=== PATIENT | male | born 1970 | race Caucasian/White ===

== ENCOUNTER 2022-12-18 02:54 | Outpatient (CLI) | payer OTHER, SELFPAY ==
[2022-12-18 09:53] LABS: ALT 24 U/L (16-63); AST 24 U/L (15-37); Albumin 3.8 g/dL (3.4-5.0); Alkaline Phosphatase 113 U/L (46-116); Anion Gap 8.3 mmol/L (3-11); BUN 13 mg/dL (7-18); Bilirubin, Total 0.3 mg/dL (0.2-1.0); CO2 28.7 mmol/L (21.0-32.0); Calcium 9.3 mg/dL (8.5-10.1); Calculated LDL 118 mg/dL (<100); Chloride 104 mmol/L (98-107); Cholesterol 176 mg/dL (<200); Estimated GFR 90.56 (mL/min/1.73m2); Glucose 99 mg/dL (74-106); HDL Cholesterol 46 mg/dL (40-60); Potassium 4.2 mmol/L (3.5-5.1); Sodium 141 mmol/L (136-145); Total Protein 7.5 g/dL (6.4-8.2); Triglyceride 62 mg/dL (<150)
== END 2022-12-18 02:55 | disposition home or self-care (01) ==
PROVIDERS: PCP Nurse Practitioner Family; Visit Provider Nurse Practitioner Family
DX: E78.5 Hyperlipidemia, unspecified (principal)
CPT/HCPCS: 36415; 80053; 80061

== ENCOUNTER 2023-05-07 08:03 | Day surgery (SDC) | payer OTHER, SELFPAY ==
--- NOTE | 2023-05-06 14:54 | W.PM.DSUDISC ---
Date of service: 05/07/23 Time of Service: 10:31 Discharge Plan Disposition Patient Disposition: Home Condition: Good Discharge Details Reason For Visit: screening colonoscopy Attending Provider: Amandeep Reardon Primary Care Provider: Javad Page Home Meds and New Rx's Prescriptions: Continued atorvastatin [Lipitor] 20 mg tablet 20 mg PO DAILY Qty: 90 4RF multivitamin Tablet 1 tab PO DAILY Discontinued bisacodyl [Dulcolax (bisacodyl)] 5 mg tablet,delayed release (DR/EC) 5 mg PO ONCE Qty: 4 0RF Rx Instructions: Colonoscopy Bowel Prep- Per Instructions polyethylene glycol 3350 17 gram/dose powder 238 g PO ONCE Qty: 238 0RF Rx Instructions: Colonoscopy Bowel Prep- Per Instructions Discharge Instructions Instructions: Colorectal Polyps (GEN) Additional Instructions: Joel, we were able to complete your colonoscopy today without any difficulty. In total I found 5 polyps, all were quite small. I removed these all completely. They will be sent off to be tested for pathology. Once I have those results, I will be in touch with my recommendations for your next colonoscopy. Like we talked about beforehand, at the longest, I would recommend 5 years based on your family history. If any of these polyps turned out to be more aggressive, then I would shorten that 3 years. If you have any questions in the meantime, please do not hesitate to call. Otherwise we will let you know once the pathology is available. 1. If tolerated, consume a soft, low fiber diet for 1-2 days. 2. Do not drive, drink alcohol, operate machinery, make critical decisions, or do activities that require coordination or balance for 24 hours. 3. Because air was put into your colon during the procedure, expelling air from your rectum (passing gas or farting) is normal. 4. You may not have a bowel movement for 1-3 days because of the colonoscopy prep. This is normal. 5. Go directly to the emergency room if you notice any of the following: Develop chills (warm to touch), or if you have a thermometer and your temperature is above 101 Difficulty breathing or difficultly swallowing Persistent vomiting Severe abdominal pain, other than gas cramps Severe chest pain Black, tarry stools Any bleeding ? exceeding one tablespoon 6. Call your physician if the site where your intravenous was started becomes red, swollen, painful, and warm to touch. 7. Your physician has reviewed your pre-procedure medications. Please continue to take those medications as previously ordered. You will be given specific information/education regarding any changes to your medications before leaving. Activity:: Activity as Tolerated Diet:: As Tolerated Discharge Orders Discharge Orders: Discharge Order (Routine); Ordered 05/06/23 Ordered By: Amandeep Reardon DS: Diagnosis Discharge Diagnosis (1) Screen for colon cancer: Status: Acute Asessment and Plan: Follow-up on polypectomy results
--- NOTE | 2023-05-06 14:55 | COLE_ITS ---
Date of service: 05/07/23 Time of Service: 10:33 Colonoscopy Report Date of procedure: 05/07/23 Pre-op diagnosis general: screening colonoscopy Post-op diagnosis procedure note: other (Colorectal polyps) Procedure: Colonoscopy with polypectomy Surgeon: Amandeep Reardon Anesthesia Type: General:No Airway Estimated blood loss (mL): 10 Pathology: other (0.25 cm polyp at 60 cm, 0.25 cm polyp at 45 cm, 0.25 cm polyp at 30 cm, 0.25 cm polyp at 15 cm x 2) Complications: None Disposition: same day Indications: Joel is 52 years old. Polyps were removed on previous colonoscopy. He is here for another screening. Prep: Miralax/Dulcolax Procedure Start Time: 10:02 Procedure End Time: : Retraction Time: 17 Findings: 0.25 cm polyp at 60 cm, 0.25 cm polyp at 45 cm, 0.25 cm polyp at 30 cm, 0.25 cm polyp at 15 cm x 2 Procedure Description: After the induction of monitored anesthetic care, and with the patient in left lateral decubitus position, I began by performing an external anorectal exam.? Perineum and skin were normal, as was the anal verge.? There was no evidence of external hemorrhoids.? Next, I performed a digital rectal exam.? I did not appreciate any abnormal findings.? Next, I advanced a colonoscope into the recta l vault.? I performed retroflexion.? This appeared normal s.? Using insufflation, I then advanced the colonoscope beyond the rectal folds and into the sigmoid colon before advancing towards the cecum.? The scope was noted to be in the cecum by identification of the ileocecal valve and appendiceal orifice.? I then began withdrawing the colonoscope using repeated irrigation as necessary for full evaluation of the colonic mucosa. Around 60 cm from the anal verge was a 0.25 cm sessile polyp. I removed this with cold forceps without any issue. Similarly, I found 0.25 cm sessile polyps at 45 cm from the anus as well as 30 cm from the anus. These were also removed with cold forceps. ?Once the scope was withdrawn to the level of the rectum, great care was taken to examine portions of the rectal folds.? At the top portion of the rectal vault, around 15 cm from the anal verge were 2 more polyps. Both of these were sessile. I was able to remove these both with cold forceps without any problems. There was minimal bleeding from any of the sites. Finally, the scope was withdrawn and the patient was brought to the same-day surgery recovery unit as the anesthetic wore off. ?The findings and instructions were shared with the patient prior to discharge.
--- NOTE | 2023-05-06 18:44 | ANES.PREOP_ITS ---
General Info Height: 5 ft 10 in Weight: 91.172 kg Body Mass Index (BMI): 28.8 Surgical Procedure: Operation Date: 05/07/23 09:50 Proposed Procedure Side Surgeon p Otis Reardon MD Meds Allergies and Home Medications Allergies Allergy/AdvReac Type Severity Reaction Status Date / Time Penicillins Allergy Unknown Unverified 05/04/23 10:04 Home Medication Medication Instructions Recorded multivitamin 1 tab PO DAILY 07/26/22 atorvastatin 20 mg tablet (Lipitor) 20 mg PO DAILY #90 tabs 09/19/22 Current Visit Medications: Current Medications Generic Name Dose Route Start Last Admin Trade Name Freq PRN Reason Stop Dose Admin Hyoscyamine Sulfate 0.125 mg 05/06/23 14:56 Hyoscyamine 0.125 Mg Sl/Oral/Chew SL 06/05/23 14:55 DIRECTED PRN Ringer's Solution 1,000 mls @ 80 mls/hr 05/07/23 06:00 IV 05/07/23 23:59 [facility] IV Miscellaneous Supplies 1 each 05/07/23 06:00 Iv Access IV 05/07/23 23:59 DIRECTED HOMERO Ondansetron HCl 4 mg 05/06/23 14:56 Ondansetron 4 Mg/2 Ml Vial IVP 06/05/23 14:55 Q4H PRN PRN Nausea / Vomiting Sodium Chloride 0 ml 05/07/23 06:00 Normal Saline Flush 10 Ml Syr IV 05/07/23 23:59 PRN PRN Sodium Chloride 0 ml 05/07/23 06:00 Normal Saline 10 Ml Vial IJ 05/07/23 23:59 DIRECTED PRN Sterile Water 0 ml 05/07/23 06:00 Water,Injection,Sterile 10 Ml Vial IJ 05/07/23 23:59 DIRECTED PRN PFSH Active Problems Active Problems: Problem Status Onset Code Screen for colon cancer Z12.11 Other chronic pain G89.29 Carpal tunnel syndrome of left wrist G56.02 Hyperlipemia E78.5 Medical History Medical History Colon polyp Low back pain Surgical History Surgical History History of removal of skin mole Hx of colonoscopy (~04/09/18) Tobacco Smoking/Tobacco Use Status: Never Passive smoking exposure: Yes Second hand exposure: Yes Alcohol Alcohol Intake: never Substance Use Substance use: Occasionally Substance use type: marijuana Vital Signs and Lab Results Lab Results Blood Type / Crossmatch: No Data to Display Complete Blood Count: No Data to Display Complete Metabolic Panel: No Data to Display Liver Function Panel: No Data to Display Coagulation Panel: No Data to Display Cardiac Panel: No Data to Display Arterial Blood Gas: No Data to Display Venous Blood Gas: No Data to Display Pancreas Panel: No Data to Display Thyroid Panel: No Data to Display Infectious Disease: No Data to Display Blood Cultures: No Data to Display Toxicology Panel: No Data to Display Anesthesia Assessment and Plan Anesthesia History Personal History: No History of Anesthesia Complications Family History: No Family History of Anesthesia Complications Implantable Cardiac Device Does patient have a Pacemaker or an ICD?: No Anesthesia Plan Resuscitation Status: Full Code Anesthesia Technique: General Anesthesia Airway Planned: Natural Airway Monitors Used: Standard Monitors Preoperative Comments:: 52 yo male for colo. Sig PMHx: back pain, occ cannabis.
[2023-05-07 08:46] VITALS: BP 119/74; PULSE 63; RESP 16; TEMP 36.5; O2SAT 99
[2023-05-07] MEDS: Lactated Ringers 1,000 ML 80 ML IV (09:06)
--- NOTE | 2023-05-07 09:21 | W.ANESPRE ---
General Info Date of Service Date Performed: 05/07/23 Height: 5 ft 10 in Weight: 90 kg Body Mass Index (BMI): 28.4 Surgical Procedure: Operation Date: 05/07/23 09:50 Proposed Procedure Side Surgeon palak Reardon MD Meds Allergies and Home Medications Allergies Allergy/AdvReac Type Severity Reaction Status Date / Time Penicillins Allergy Unknown Unverified 05/07/23 08:45 Home Medication Medication Instructions Recorded multivitamin 1 tab PO DAILY 07/26/22 atorvastatin 20 mg tablet (Lipitor) 20 mg PO DAILY #90 tabs 09/19/22 Current Visit Medications: Current Medications Generic Name Dose Route Start Last Admin Trade Name Freq PRN Reason Stop Dose Admin Hyoscyamine Sulfate 0.125 mg 05/06/23 14:56 Hyoscyamine 0.125 Mg Sl/Oral/Chew SL 06/05/23 14:55 DIRECTED PRN Ringer's Solution 1,000 mls @ 80 mls/hr 05/07/23 06:00 05/07/23 09:06 IV 05/07/23 23:59 80 mls/hr [facility] Administration IV Miscellaneous Supplies 1 each 05/07/23 06:00 Iv Access IV 05/07/23 23:59 DIRECTED HOMERO Ondansetron HCl 4 mg 05/06/23 14:56 Ondansetron 4 Mg/2 Ml Vial IVP 06/05/23 14:55 Q4H PRN PRN Nausea / Vomiting Sodium Chloride 0 ml 05/07/23 06:00 Normal Saline Flush 10 Ml Syr IV 05/07/23 23:59 PRN PRN Sodium Chloride 0 ml 05/07/23 06:00 Normal Saline 10 Ml Vial IJ 05/07/23 23:59 DIRECTED PRN Sterile Water 0 ml 05/07/23 06:00 Water,Injection,Sterile 10 Ml Vial IJ 05/07/23 23:59 DIRECTED PRN PFSH Active Problems Active Problems: Problem Status Onset Code Screen for colon cancer Z12.11 Other chronic pain G89.29 Carpal tunnel syndrome of left wrist G56.02 Hyperlipemia E78.5 Medical History Medical History Colon polyp Low back pain Surgical History Surgical History History of removal of skin mole Hx of colonoscopy (~09/24/17) Tobacco Smoking/Tobacco Use Status: Never Passive smoking exposure: Yes Second hand exposure: Yes Alcohol Alcohol Intake: never Substance Use Substance use: Occasionally Substance use type: marijuana Vital Signs and Lab Results Vital Signs Most Recent Vital Signs in EMR: Most Recent Vital Signs Temp Pulse Resp BP Pulse Ox 36.5 C 63 16 119/74 99 05/07/23 08:46 05/07/23 08:46 05/07/23 08:46 05/07/23 08:46 05/07/23 08:46 Lab Results Blood Type / Crossmatch: No Data to Display Complete Blood Count: No Data to Display Complete Metabolic Panel: No Data to Display Liver Function Panel: No Data to Display Coagulation Panel: No Data to Display Cardiac Panel: No Data to Display Arterial Blood Gas: No Data to Display Venous Blood Gas: No Data to Display Pancreas Panel: No Data to Display Thyroid Panel: No Data to Display Infectious Disease: No Data to Display Blood Cultures: No Data to Display Toxicology Panel: No Data to Display Anesthesia Assessment and Plan Anesthesia History Personal History: No History of Anesthesia Complications Family History: No Family History of Anesthesia Complications Exercise Tolerance Exercise Tolerance: Metabolic Equivalents>4 Pertinent Negatives Pertinent Negatives: No Symptoms of GERD Cardiac & Pulmonary Exam Cardiac Exam: Normal S1/S2 Heart Sounds Pulmonary Exam: Clear Bilateral Breath Sounds Implantable Cardiac Device Does patient have a Pacemaker or an ICD?: No Airway Exam Known Difficult Airway: No Mallampati Class: 2 Mouth Opening: Normal (> 3cm) Thyromental Distance: Greater than 3 cm Neck Range of Motion: Full ROM Neck Circumference: Normal Teeth Condition: Normal Dentition and Generalized Poor Dentition ASA Classification ASA Score: ASA 2 Emergency Case?: No NPO Status NPO Status: NPO Clears >2 hours, Solids >8 hours Anesthesia Plan Resuscitation Status: Full Code Anesthesia Technique: General Anesthesia Airway Planned: Natural Airway Monitors Used: Standard Monitors
[2023-05-07 09:34] VITALS: BMI 28.4
--- NOTE | 2023-05-07 10:12 | BOWEL_PTH ---
PATIENT: Joel Neely LOC: [facility] U#:[id number] AGE/SX: 52/M ROOM: RE05/07/[address]: Amandeep Reardon MD : 1970 BED: DIS: 05/07/2023 SPEC #: [id number] RECD: 05/07/23 12:33 STATUS: OLAYINKA RE #: [id number] CHELSEY: 05/07/23 10:[address]: Amandeep Reardon DEPT: Surgical Specimen RECD BY: Danyell Sherman ENTERED: 05/07/23 12:35 SP TYPE: Bowel OTHR DR: Javad Marshall DNP Tissues: 1 - BIOPSY BOWEL 2 - BIOPSY BOWEL 3 - BIOPSY BOWEL 4 - BIOPSY BOWEL Procedures: GROSS AND MICRO LEVEL 4 Comments: [id number]
[2023-05-07 10:27] VITALS: BP 94/75; PULSE 61; RESP 18; TEMP 36.4; O2SAT 98
--- NOTE | 2023-05-07 10:42 | W.ANESPOSTOP ---
Postoperative Evaluation Date, Time and Location Date Performed: 05/07/23 Time Performed: 10:42 Patient Location: Day Surgery Unit Vital Signs Most Recent Imported Vital Signs: Most Recent Vital Signs Temp Pulse Resp BP Pulse Ox 36.4 C L 61 18 94/75 L 98 05/07/23 10:27 05/07/23 10:27 05/07/23 10:27 05/07/23 10:27 05/07/23 10:27 Pain Score Most Recent Pain Score: Most Recent Pain Score Pain Level 0 05/07/23 10:27 Assessment Mental Status: Awake (Alert & Oriented to Patient Baseline) Airway and Respiratory Function: Patent airway with normal (patient baseline) respiratory exam Cardiovascular Function: Hemodynamically Stable Hydration Status: Adequately Hydrated Nausea & Vomiting: No Nausea or Vomiting Pain: Pt. Denies Any Pain Peripheral Nerve Block: Patient did not receive a nerve block
== END 2023-05-07 11:00 | disposition home or self-care (01) ==
LOC: SUR 08:04
PROVIDERS: PCP Nurse Practitioner Family; Visit Provider Surgery
PROC: 0DJD8ZZ Inspection of Lower Intestinal Tract, Via Natural or Artificial Opening Endoscopic (ICD-10-PCS; CPT 45378; principal; 2023-05-07 09:45)
DX: Z12.11 Encounter for screening for malignant neoplasm of colon (principal); Z86.010 Personal history of colon polyps; D12.4 Benign neoplasm of descending colon
CPT/HCPCS: 45380; 88305

== ENCOUNTER 2025-03-03 03:49 | Outpatient (CLI) | payer OTHER, SELFPAY ==
[2025-03-03 08:13] LABS: ALT 26 U/L (16-63); AST 21 U/L (15-37); Albumin 3.8 g/dL (3.4-5.0); Alkaline Phosphatase 114 U/L (46-116); Anion Gap 8.7 mmol/L (3-11); BUN 18 mg/dL (7-18); Bilirubin, Total 0.3 mg/dL (0.2-1.0); CO2 28.3 mmol/L (21.0-32.0); Calcium 9.7 mg/dL (8.5-10.1); Calculated LDL 183 mg/dL (<100); Chloride 107 mmol/L (98-107); Cholesterol 239 mg/dL (<200); Estimated GFR 89.44 (mL/min/1.73m2); Glucose 106 mg/dL (74-106); HDL Cholesterol 40 mg/dL (>or=40); Potassium 4.3 mmol/L (3.5-5.1); Sodium 144 mmol/L (136-145); Total Protein 7.4 g/dL (6.4-8.2); Triglyceride 83 mg/dL (<150)
[2025-03-11 01:30] LABS: Testosterone, Free 48.6 pg/mL (35.0-155.0)
== END 2025-03-03 03:50 | disposition home or self-care (01) ==
LOC: LBO 03:49
PROVIDERS: PCP Nurse Practitioner Family; Visit Provider Nurse Practitioner Family
DX: E78.5 Hyperlipidemia, unspecified (principal); N52.9 Male erectile dysfunction, unspecified
CPT/HCPCS: 36415; 80053; 80061; 84402; 84403

== ENCOUNTER 2025-05-15 02:21 | Outpatient (CLI) | payer OTHER, SELFPAY ==
[2025-05-15 08:22] LABS: Cholesterol 227 mg/dL (<200); HDL Cholesterol 47 mg/dL (>40)
[2025-05-21 23:30] LABS: Testosterone, Free 53.8 pg/mL (35.0-155.0)
== END 2025-05-15 02:22 | disposition home or self-care (01) ==
LOC: LBO 02:21
PROVIDERS: PCP Nurse Practitioner Family; Visit Provider Nurse Practitioner Family
DX: E78.5 Hyperlipidemia, unspecified (principal); N52.9 Male erectile dysfunction, unspecified
CPT/HCPCS: 36415; 80061; 84402; 84403